=== PATIENT | male | born 1995 | race Caucasian/White ===

== ENCOUNTER 2021-05-17 07:17 | Emergency (ER) | payer OTHER ==
[2021-05-17] MEDS ORDERED: HYDROmorphone 0.5 MG/0.5 ML Syringe IVPUSH ONE (07:41)
[2021-05-17] MEDS ORDERED: Metoclopramide 10 MG/2 ML SDV IVPUSH ONE (07:41)
--- NOTE | 2021-05-17 07:41 | EDM.PDOC ---
ED HPI GENERAL MEDICAL PROBLEM - General Chief Complaint: Respiratory Problem Stated Complaint: CHEST PAIN Time Seen by Provider: 05/17/21 07:36 Source of Information: Reports: Patient History Limitations: Reports: No Limitations - History of Present Illness INITIAL COMMENTS - FREE TEXT/NARRATIVE: 25-year-old male presents to the ED with a paroxysmal cough starting last evening that produced emesis on the first 5 coughs. Coughing up bright red blood and small quantities like a mouthful but not enough to fill the hand. No clots. Of note the patient had COVID-19 illness a year ago and was hospitalized for 2 and half days. He has a history of asthma. He is currently using Breo inhaler for his asthma control. He does not believe he is wheezing. Nothing special about yesterday with exposure to any fumes or toxins. Remains nauseated this morning. No fever no chills. Pain is rating up into his left shoulder both anteriorly and posteriorly worse with breathing concerning for possible pneumothorax. Respiratory rate is 20 with O2 sats of 96% room air. Onset: Sudden Onset Date: 05/16/21 Onset Time: 22:00 Duration: Hour(s):, Intermittent Location: Reports: Chest (Accessible cough with hemoptysis. Associate with nausea and vomiting could be because of coughing so hard) Quality: Reports: Other (Stabbing left shoulder pain worsened by deep breathing) Severity: Moderate (7-8 out of 10) Improves with: Reports: Rest (And shallow breathing) Worsens with: Reports: Movement Context: Denies: Activity (And deep breathing), Exercise, Lifting, Sick Contact, Trauma, Other Associated Symptoms: Reports: Chest Pain, Cough, cough w sputum (Jarvis mopped assist with mucus), Nausea/Vomiting (Nausea and vomiting associate with a cough), Shortness of Breath (Subjective dyspnea is taking a deep breath makes the pain worse). Denies: No Other Symptoms, Confusion, Diaphoresis, Fever/Chills, Headaches, Loss of Appetite, Malaise, Rash, Seizure, Syncope, Weakness (Left upper anterior chest pain), Other Treatments [employer]: Reports: Other (see below) (None.) Chest Pain Score (Numeric/FACES): 8 - Related Data Allergies Allergy/AdvReac Type Severity Reaction Status Date / Time No Known Allergies Allergy Verified 05/17/21 07:36 Home Meds: Home Meds Fluticasone/Vilanterol [Breo Ellipta 100-25 MCG Inhalation Kit] 05/17/21 [History] levoFLOXacin [Levaquin] 500 mg PO DAILY #9 tab 05/17/21 [Rx] Past Medical History Respiratory History: Reports: Asthma Social & Family History - Living Situation & Occupation Living situation: Reports: Single Occupation: Unemployed ED ROS GENERAL - Review of Systems Review Of Systems: See Below Constitutional: Reports: Fatigue (From not sleeping last night). Denies: Fever, Chills, Malaise, Weakness HEENT: Reports: No Symptoms Respiratory: Reports: Shortness of Breath, Wheezing Cardiovascular: Reports: Chest Pain (Left upper anterior chest pain rating to his shoulder) Endocrine: Reports: No Symptoms GI/Abdominal: Reports: Nausea, Vomiting (Nausea and vomiting associated with cough) : Reports: No Symptoms Musculoskeletal: Reports: No Symptoms Skin: Reports: No Symptoms Neurological: Reports: No Symptoms Psychiatric: Reports: No Symptoms Hematologic/Lymphatic: Reports: No Symptoms Immunologic: Reports: No Symptoms ED EXAM, GENERAL - Physical Exam Exam: See Below Exam Limited By: No Limitations General Appearance: Alert, WD/WN, Anxious, Mild Distress (Appears to be unwell with inability to take deep breath.), Other (Vital signs show temperature of 36.4 degrees. Heart rate 100 and sinus respiratory is 20 with O2 sats of 96% room air. BP 132/79) Eye Exam: Bilateral Eye: Normal Inspection, PERRL Nose: Normal Inspection (No evidence of recent nasal bleeding) Throat/Mouth: Normal Inspection, Normal Lips, Normal Teeth, Normal Voice, Other (No blood in the posterior oropharynx) Head: Atraumatic, Normocephalic Neck: Normal Inspection, Supple, Non-Tender, Full Range of Motion. No: Carotid Bruit Respiratory/Chest: Lungs Clear, Normal Breath Sounds, No Accessory Muscle Use, Chest Non-Tender, Decreased Breath Sounds (Mildly decreased breath sounds anterior left lung field), Splinting (Very mild splinting on the left side) Cardiovascular: Normal Peripheral Pulses, Regular Rate, Rhythm, No Edema, No Murmur, No Rub Peripheral Pulses: 3+: Carotid (L), Carotid (R), Posterior Tibial (L), Posterior Tibial (R), Dorsalis Pedis (L), Dorsalis Pedis (R) GI/Abdominal: Normal Bowel Sounds, Soft, Non-Tender, No Organomegaly, No Distention, Other (Scaphoid abdomen. No surgical scars) Back Exam: Normal Inspection, Full Range of Motion. No: CVA Tenderness (L), CVA Tenderness (R) Extremities: Normal Inspection, Normal Range of Motion, Non-Tender, No Pedal Edema Neurological: Alert, Oriented, CN II-XII Intact, Normal Cognition Psychiatric: Anxious Skin Exam: Warm, Dry, Intact, Normal Color, No Rash Course - Vital Signs Last Recorded V/S: Last Vital Signs Temp 37.6 C 05/17/21 09:40 Pulse 100 05/17/21 07:30 Resp 20 05/17/21 07:30 BP 132/79 05/17/21 07:30 Pulse Ox 96 05/17/21 07:30 - Orders/Labs/Meds Orders: Active Orders 24 hr Category Date Time Status Dextrose 5%-0.9% NaCl [Dextrose 5%-Normal Saline] 1,000 Med 05/17/21 07:45 Active ml IV ASDIRECTED Sodium Chloride 0.9% [Normal Saline] 100 ml Med 05/17/21 08:15 Active IV ASDIRECTED Medication Orders Dextrose/Sodium Chloride (Dextrose 5%-Normal Saline) 1,000 mls @ 150 mls/hr IV ASDIRECTED MARELY Last Admin: 05/17/21 08:00 Dose: 150 mls/hr Documented by: TONY Sodium Chloride (Normal Saline) 100 mls @ 60 mls/hr IV ASDIRECTED MARELY Last Admin: 05/17/21 08:19 Dose: 60 mls/hr Documented by: KYA Labs: Laboratory Tests 05/17/21 05/17/21 05/17/21 Range/Units 07:51 07:54 07:54 WBC 20.69 H (4.23-9.07) K/mm3 RBC 4.91 (4.63-6.08) M/mm3 Hgb 14.6 (13.7-17.5) gm/dl Hct 42.9 (40.1-51.0) % MCV 87.4 (79.0-92.2) fl MCH 29.7 (25.7-32.2) pg MCHC 34.0 (32.2-35.5) g/dl RDW Std Deviation 40.1 (35.1-43.9) fL Plt Count 186 (163-337) K/mm3 MPV 9.3 L (9.4-12.3) fl Neut % (Auto) 90.5 H (34.0-67.9) % Lymph % (Auto) 3.3 L (21.8-53.1) % [place] % (Auto) 5.8 (5.3-12.2) % Eos % (Auto) 0 L (0.8-7.0) Baso % (Auto) 0.1 (0.1-1.2) % Neut # (Auto) 18.72 H (1.78-5.38) K/mm3 Lymph # (Auto) 0.68 L (1.32-3.57) K/mm3 [place] # (Auto) 1.20 H (0.30-0.82) K/mm3 Eos # (Auto) 0.00 L (0.04-0.54) K/mm3 Baso # (Auto) 0.02 (0.01-0.08) K/mm3 Manual Slide Review Abnormal smear D-Dimer, Quantitative 0.83 H (0.19-0.50) mg/L Sodium (136-145) mEq/L Potassium (3.5-5.1) mEq/L Chloride (98-107) mEq/L Carbon Dioxide (21-32) mEq/L Anion Gap (5-15) BUN (7-18) mg/dL Creatinine (0.7-1.3) mg/dL Est Cr Clr Drug Dosing mL/min Estimated GFR (MDRD) (>60) mL/min BUN/Creatinine Ratio (14-18) Glucose (70-99) mg/dL Calcium (8.5-10.1) mg/dL Total Bilirubin (0.2-1.0) mg/dL AST (15-37) U/L ALT (16-63) U/L Alkaline Phosphatase (46-116) U/L Lactate Dehydrogenase 162 (85-227) U/L C-Reactive Protein (<1.0) mg/dL Total Protein (6.4-8.2) g/dl Albumin (3.4-5.0) g/dl Globulin gm/dL Albumin/Globulin Ratio (1-2) 05/17/21 Range/Units 07:54 WBC (4.23-9.07) K/mm3 RBC (4.63-6.08) M/mm3 Hgb (13.7-17.5) gm/dl Hct (40.1-51.0) % MCV (79.0-92.2) fl MCH (25.7-32.2) pg MCHC (32.2-35.5) g/dl RDW Std Deviation (35.1-43.9) fL Plt Count (163-337) K/mm3 MPV (9.4-12.3) fl Neut % (Auto) (34.0-67.9) % Lymph % (Auto) (21.8-53.1) % [place] % (Auto) (5.3-12.2) % Eos % (Auto) (0.8-7.0) Baso % (Auto) (0.1-1.2) % Neut # (Auto) (1.78-5.38) K/mm3 Lymph # (Auto) (1.32-3.57) K/mm3 [place] # (Auto) (0.30-0.82) K/mm3 Eos # (Auto) (0.04-0.54) K/mm3 Baso # (Auto) (0.01-0.08) K/mm3 Manual Slide Review D-Dimer, Quantitative (0.19-0.50) mg/L Sodium 135 L (136-145) mEq/L Potassium 3.9 (3.5-5.1) mEq/L Chloride 97 L (98-107) mEq/L Carbon Dioxide 30 (21-32) mEq/L Anion Gap 11.9 (5-15) BUN 13 (7-18) mg/dL Creatinine 1.2 (0.7-1.3) mg/dL Est Cr Clr Drug Dosing 95.74 mL/min Estimated GFR (MDRD) > 60 (>60) mL/min BUN/Creatinine Ratio 10.8 L (14-18) Glucose 133 H (70-99) mg/dL Calcium 8.9 (8.5-10.1) mg/dL Total Bilirubin 0.9 (0.2-1.0) mg/dL AST 16 (15-37) U/L ALT 20 (16-63) U/L Alkaline Phosphatase 54 (46-116) U/L Lactate Dehydrogenase (85-227) U/L C-Reactive Protein 7.5 H* (<1.0) mg/dL Total Protein 7.1 (6.4-8.2) g/dl Albumin 3.7 (3.4-5.0) g/dl Globulin 3.4 gm/dL Albumin/Globulin Ratio 1.1 (1-2) Meds: Medications Generic Name Dose Route Start Last Admin Trade Name Chetanq PRN Reason Stop Dose Admin Dextrose/Sodium Chloride 1,000 mls @ 150 mls/hr 05/17/21 07:45 05/17/21 08:00 Dextrose 5%-Normal Saline IV 150 mls/hr ASDIRECTED MARELY Administration Sodium Chloride 100 mls @ 60 mls/hr 05/17/21 08:15 05/17/21 08:19 Normal Saline IV 60 mls/hr ASDIRECTED MARELY Administration Discontinued Medications Generic Name Dose Route Start Last Admin Trade Name Chteanq PRN Reason Stop Dose Admin Hydromorphone HCl 0.5 mg 05/17/21 07:41 05/17/21 07:56 Hydromorphone 0.5 Mg/0.5 Ml Syringe IVPUSH 05/17/21 07:42 0.5 mg ONETIME ONE Administration Ceftriaxone Sodium 2 gm/ 100 mls @ 200 mls/hr 05/17/21 09:00 05/17/21 09:08 Sodium Chloride IV 05/17/21 09:29 200 mls/hr ONETIME ONE Administration Ibuprofen 600 mg 05/17/21 09:35 05/17/21 09:40 Ibuprofen 600 Mg Tab PO 05/17/21 09:36 600 mg ONETIME ONE Administration Iopamidol 100 ml 05/17/21 08:00 05/17/21 08:19 Iopamidol 755 Mg/Ml 100 Ml Bottle IVPUSH 05/17/21 08:01 100 ml ONETIME ONE Administration Metoclopramide HCl 7.5 mg 05/17/21 07:41 05/17/21 07:56 Metoclopramide 10 Mg/2 Ml Sdv IVPUSH 05/17/21 07:42 7.5 mg ONETIME ONE Administration - Radiology Interpretation Free Text/Narrative:: 25-year-old male presents to the ED with sudden onset of paroxysmal cough last evening. Had posttussive emesis x5 last evening. Emesis contained bright red blood on at least 5 or 6 occasions overnight. Has persistent sharp stabbing pleuritic-like pain left upper anterior chest rating into his left shoulder with every breath. Splinting respirations on the left side. Slightly decreased air entry to the left lung field. No hyperresonance. Trachea midline. Concern is for possible PE versus pneumothorax. Patient had COVID-19 illness 1 year ago and was hospitalized for 2-1/2 days due to exacerbation of asthma and hypoxia. He continues on Breo Ellipta inhaler for asthma control. Not wheezing at present time. O2 sats 96% room air. Plan IV D5 normal saline at 150 mils an hour. Dilaudid 0.5 mg IV for pain relief with Reglan 7.5 mg IV. Routine labs to be collected including coags and D-dimer and LDH. - Re-Assessments/Exams Free Text/Narrative Re-Assessment/Exam: 05/17/21 08:50 CT pulmonary angiogram completed. Pulmonary arteries are fairly well opacified. No obvious filling defects are seen to indicate pulmonary embolism. Thoracic aorta shows no aneurysm. Mediastinum shows no adenopathy. Axillary regions also show no adenopathy. No pericardial thickening is seen. Visualized upper abdominal structures show nothing acute. Consolidation is seen within the left lower lung base. Small area of consolidation is also noted adjacent to the right heart margin within the right middle lobe. These findings presumably represent pneumonia. Lungs otherwise are clear. No pleural effusions are seen. Bone window settings were reviewed and appear to be within normal limits. 05/17/21 08:52 White count is markedly elevated at 20.69 with 90.5% neutrophils on the auto differential. Hemoglobin is 14.6 with hematocrit of 42.9. Platelet count 186,000. The smear reveals neutrophilia. D-dimer is mildly elevated at 0.83 combined with an infective process. Sodium 135 slightly low potassium 3.9 with a chloride of 97 and bicarb of 30. Anion gap is 11.9. BUN is 13 with a creatinine of 1.2 and a GFR greater than 60. Glucose 133. Calcium 8.9 liver function normal LDH 162. C-reactive protein elevated at 7.5 total protein is 7.1 with an albumin fraction of 3.7. Plan will proceed with IV antibiotic therapy using Rocephin 2 g IV. I will then place him on Levaquin 500 mg once daily to complete a 10-day course of therapy. 05/17/21 09:00 I have discussed the findings of the CT exam with the patient and indicated that he does require IV antibiotic therapy for pneumonia. Asked that he places Breo inhaler on hold for a couple of days due to the steroid effect potentially making his pneumonia worse. 05/17/21 10:16 patient has completed Rocephin 2 g IV. He has been given Motrin 600 mg p.o. for fever relief. He will be discharged home. I am going to place him on Levaquin 500 mg once daily for the next 9 days with the first tab to be taken at [facility]. He is currently not working and advised that will be the better part of a week to 2 weeks before he feels back to normal and regains his appetite. He will follow-up with personal care physician if any further problems occur. Departure - Departure Time of Disposition: 10:17 Disposition: Home, Self-Care 01 Condition: Fair Clinical Impression: Left lower lobe pneumonia Qualifiers: Pneumonia type: due to unspecified organism Qualified Code(s): J18.9 - Pneumonia, unspecified organism - Discharge Information *PRESCRIPTION DRUG MONITORING PROGRAM REVIEWED*: Not Applicable *COPY OF PRESCRIPTION DRUG MONITORING REPORT IN PATIENT WHITNEY: Not Applicable Prescriptions: levoFLOXacin [Levaquin] 500 mg PO DAILY #9 tab Referrals: PCP,Not In Area [Primary Care Provider] - Forms: ED Department Discharge Additional Instructions: Evaluation in the emergency room this morning in regards to development of severe paroxysmal cough containing blood or hemoptysis. No noted fever or chills although you did develop a fever while in the emergency department. Recent history of COVID-19 illness requiring hospitalization a year ago. Evaluation in the emergency room today revealed your white count to be markedly elevated at greater than 20,000 with normal being 10,000 or less. Markers for infection were also positive. Chest x-ray revealed a pneumonia in the left lower lobe of your lung and also the start of an early pneumonia in the right middle lobe of your lung adjacent to your heart. The pneumonia in the bottom of the left lung is the cause of the pain rating up into your left shoulder from inflammation of the lung lining called the pleura. You will need to continue Motrin 600 mg about every 6 hours to reduce that pain from inflammation and fever relief. First dose of antibiotic was started in the ED you received Rocephin 2 g intravenously. You will need to take oral antibiotic Levaquin 500 mg once daily for the next 8 days with the first tablet to be taken tonight at suppertime. Suggest staying away from your Breo inhaler for a couple of days and then you may resume it. Follow-up with personal care physician if any further problems occur. Note you will be the better part of a week before you feel anywhere close to normal. Appetite will be slow to resume but drink lots of fluids such as Gatorade Powerade etc. Diet as tolerated Sepsis Event Note (ED) - Evaluation Sepsis Screening Result: No Definite Risk - Focused Exam Vital Signs: Vital Signs Temp Temp Pulse Resp BP Pulse Ox 05/17/21 09:40 37.6 C 05/17/21 07:30 36.4 C 100 20 132/79 96 - My Orders Last 24 Hours: My Active Orders 05/17/21 07:45 Dextrose 5%-0.9% NaCl [Dextrose 5%-Normal Saline] 1,000 ml IV ASDIRECTED 05/17/21 08:15 Sodium Chloride 0.9% [Normal Saline] 100 ml IV ASDIRECTED - Assessment/Plan Last 24 Hours: My Active Orders 05/17/21 07:45 Dextrose 5%-0.9% NaCl [Dextrose 5%-Normal Saline] 1,000 ml IV ASDIRECTED 05/17/21 08:15 Sodium Chloride 0.9% [Normal Saline] 100 ml IV ASDIRECTED
[2021-05-17] MEDS ORDERED: Dextrose 5%-0.9% NaCl 1,000 ML IV SCH (07:45)
[2021-05-17] MEDS ORDERED: Iopamidol 755 Mg/ML 100 ML Bottle IVPUSH ONE (08:00)
[2021-05-17] MEDS ORDERED: Sodium Chloride 0.9% 100 ML IV SCH (08:15)
--- NOTE | 2021-05-17 08:39 | CT ---
CT chest Technique: Multiple axial sections through the chest were obtained. Intravenous contrast was utilized. Study has been performed as a pulmonary angiogram protocol. Comparison: No prior chest imaging is available. Findings: Pulmonary arteries are fairly well opacified. No filling defects are seen to indicate pulmonary embolism. Thoracic aorta shows no aneurysm. Mediastinum shows no adenopathy. Axillary regions also show no adenopathy. No pericardial thickening is seen. Visualized upper abdominal structures show nothing acute. Consolidation is seen within the left lower lung. Small area of consolidation is also noted adjacent to the right heart margin within the right middle lobe. These findings presumably represent pneumonia. Lungs otherwise are clear. No pleural effusions are seen. Bone window settings were reviewed which appear within normal limits for the patient's age. Impression: 1. Consolidation within the left lower lung as well as smaller area of consolidation adjacent to the right heart margin within the right middle lobe. These findings presumably represent pneumonia. 2. No findings of pulmonary embolism are seen. 3. Other portions of the CT exam of the chest appear within normal limits. Diagnostic code #3
[2021-05-17] MEDS ORDERED: cefTRIAXone 2 GM in Sodium Chloride 0.9% 100 ML IV ONE (09:00)
[2021-05-17] MEDS ORDERED: Ibuprofen 600 MG Tab PO ONE (09:35)
== END 2021-05-17 10:32 | disposition home or self-care (01) ==
LOC: JD.ED 07:17
DX: J18.9 Pneumonia, unspecified organism (principal); J45.909 Unspecified asthma, uncomplicated; Z79.899 Other long term (current) drug therapy
CPT/HCPCS: 36415; 71275; 80053; 83615; 85025; 85379; 86140; 96365; 96375; 99283; A9270; J0696; J1170; J2765; J7042; Q9967